=== PATIENT | female | born 1975 | race American Indian/Alaskan Native ===

== ENCOUNTER 2020-07-05 10:32 | Emergency (ER) | payer MEDICAID, OTHER ==
[2020-07-05 10:37] VITALS: BP 130/85
[2020-07-05] MEDS ORDERED: HYDROcodone/ACETAMINOPHEN 5-325 MG TAB PO ONE (11:07)
[2020-07-05] MEDS ORDERED: KETOROLAC 10 MG TAB PO ONE (11:07)
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
== END 2020-07-05 13:03 | disposition home or self-care (01) ==
LOC: ED 10:32
DX: S16.1XXA Strain of muscle, fascia and tendon at neck level, initial encounter (principal); S39.012A Strain of muscle, fascia and tendon of lower back, initial encounter; M19.91 Primary osteoarthritis, unspecified site; Z98.890 Other specified postprocedural states; Z79.899 Other long term (current) drug therapy; V49.49XA Driver injured in collision with other motor vehicles in traffic accident, initial encounter; Y93.89 Activity, other specified; Y92.410 Unspecified street and highway as the place of occurrence of the external cause; Y99.8 Other external cause status
CPT/HCPCS: 72040; 72100

== ENCOUNTER 2020-11-27 22:58 | Observation (INO) | payer OTHER ==
[2020-11-27] MEDS ORDERED: ASPIRIN 325 MG TAB PO ONE (23:04)
[2020-11-27 23:32] LABS: Basophils # (Auto) 0.1 K/mm3 (0.0-0.1); Basophils % (Auto) 0.7 % (0.0-1.8); Eosinophils # (Auto) 0.1 K/mm3 (0.0-0.4); Eosinophils % (Auto) 0.7 % (0.0-4.3); Hematocrit 34.5 % (30.3-42.9); Hemoglobin 11.4 gm/dl (10.1-14.3); Lymphocytes # (Auto) 1.5 K/mm3 (1.2-5.4); Mean Corpuscular HGB Conc 33 % (30-34); Mean Corpuscular Volume 89 fl (79-97); Monocytes # (Auto) 0.8 K/mm3 (0.0-0.8); Monocytes % (Auto) 5.2 % (0.0-7.3); Platelet Count 334 K/mm3 (140-440); Red Blood Count 3.88 M/mm3 (3.65-5.03)
[2020-11-28 00:37] LABS: Alanine Aminotransferase 11 units/L (7-56); Albumin 4.3 g/dL (3.9-5); BUN/Creatinine Ratio 14; Blood Urea Nitrogen 13 mg/dL (7-17); Calcium 8.6 mg/dL (8.4-10.2); Hemolysis Index 16
[2020-11-28 00:59] LABS: Bilirubin,Urine NEG (Negative); Blood,Urine SM (Negative); Color,Urine Yellow (Yellow); Mucus,Urine 2+ /HPF
[2020-11-28] MEDS ORDERED: ONDANSETRON 4 MG/2 ML INJ IV STA (01:28)
[2020-11-28] MEDS ORDERED: MORPHINE 4 MG/1 ML INJ IV STA (01:28)
--- NOTE | 2020-11-28 01:39 | Emergency Department Report ---
ED Abdominal Pain HPI - General Chief Complaint: Chest Pain Stated Complaint: CHEST PAIN/LEFT ARM PAIN/ABDOMINAL PAIN/DIZZY Time Seen by Provider: 11/28/20 01:25 Source: patient Mode of arrival: Ambulatory Limitations: No Limitations - History of Present Illness Initial Comments: 45-year-old -[place] female with no significant past medical history with exception of a previous ventral hernia repair back in the presents emerged department complaining of sudden onset of mid abdominal pain that radiates to the back and lower chest region starting at 2 8:30 PM of unknown allergy. Pain is worse with palpation and range of motion and certain position she reports no vomiting or diarrhea to her knowledge. MD Complaint: abdominal pain Location: diffuse Radiation: none Migration to: no migration Severity: mild Quality: aching, dull Consistency: constant Associated Symptoms: denies other symptoms. denies: vomiting, diarrhea, constipation, dysuria, hematemesis, hematuria, anorexia - Related Data Home Medications Medication Instructions Recorded Confirmed Last Taken Ferrous Sulfate [Iron Supplement] 325 mg PO DAILY 04/08/14 04/08/14 04/07/14 Previous Rx's Medication Instructions Recorded Last Taken Type Diclofenac Sodium 75 mg PO BID PRN 7 Days #14 07/05/20 Unknown Rx tablet. methBONNIE [Robaxin TAB] 1,500 mg PO Q8H PRN #20 tablet 07/05/20 Unknown Rx Allergies Allergy/AdvReac Type Severity Reaction Status Date / Time No Known Allergies Allergy Verified 11/28/20 05:27 ED Review of Systems ROS: Stated complaint: CHEST PAIN/LEFT ARM PAIN/ABDOMINAL PAIN/DIZZY Other details as noted in HPI Comment: All other systems reviewed and negative ED Past Medical Hx - Past Medical History Hx Arthritis: Yes Additional medical history: anemia - Surgical History Additional Surgical History: hernia repair, myoectomy - Social History Smoking Status: Never Smoker Substance Use Type: Alcohol - Medications Home Medications: Home Medications Medication Instructions Recorded Confirmed Last Taken Type Ferrous Sulfate [Iron Supplement] 325 mg PO DAILY 04/08/14 04/08/14 04/07/14 History Diclofenac Sodium 75 mg PO BID PRN 7 Days #14 07/05/20 Unknown Rx tablet.dr Maciel [Robaxin TAB] 1,500 mg PO Q8H PRN #20 tablet 07/05/20 Unknown Rx ED Physical Exam - General Limitations: No Limitations General appearance: alert, in no apparent distress - Head Head exam: Present: atraumatic, normocephalic - Eye Eye exam: Present: normal appearance, PERRL Pupils: Present: normal accommodation - ENT ENT exam: Present: normal exam, normal orophraynx, mucous membranes moist - Neck Neck exam: Present: normal inspection, full ROM - Respiratory Respiratory exam: Present: normal lung sounds bilaterally. Absent: respiratory distress, wheezes, rales, rhonchi - Cardiovascular Cardiovascular Exam: Present: regular rate, normal rhythm. Absent: systolic murmur, diastolic murmur, rubs, gallop - GI/Abdominal GI/Abdominal exam: Present: soft, tenderness, normal bowel sounds, mass (Ventral mass. Possible hernia). Absent: pulsatile mass - Extremities Exam Extremities exam: Present: normal inspection, normal capillary refill - Back Exam Back exam: Present: normal inspection. Absent: CVA tenderness (R), CVA tenderness (L), muscle spasm, paraspinal tenderness - Neurological Exam Neurological exam: Present: alert, oriented X3, CN II-XII intact, normal gait - Psychiatric Psychiatric exam: Present: normal affect, normal mood - Skin Skin exam: Present: warm, dry, intact, normal color. Absent: rash ED Course Vital Signs 11/27/20 23:01 Temperature 98.4 F Pulse Rate 73 Respiratory 18 Rate Blood Pressure 131/72 O2 Sat by Pulse 100 Oximetry - Consultations Consultation #1: 11/28/20 06:22 Case was discussed with general surgeon Dr. Sanchez plan is to keep patient n.p.o. we will perform surgery later this morning advised have the patient admitted to medicine. Dr. Watkins is aware of the evolving urinary tract infection and request antibiotics to be initiated Consultation #2: 11/28/20 06:22 Case was discussed with hospitalist for admission please be made aware of the findings on CT scan as well as urinalysis for definitive treatment. ED Medical Decision Making - Lab Data Result diagrams: 11/27/20 23:14 11/27/20 23:14 Lab Results 11/27/20 11/27/20 11/28/20 Range/Units 23:14 23:14 00:51 WBC 16.3 H (4.5-11.0) K/mm3 RBC 3.88 (3.65-5.03) M/mm3 Hgb 11.4 (10.1-14.3) gm/dl Hct 34.5 (30.3-42.9) % MCV 89 (79-97) fl MCH 29 (28-32) pg MCHC 33 (30-34) % RDW 15.0 (13.2-15.2) % Plt Count 334 (140-440) K/mm3 Lymph % (Auto) 9.0 L (13.4-35.0) % [place] % (Auto) 5.2 (0.0-7.3) % Eos % (Auto) 0.7 (0.0-4.3) % Baso % (Auto) 0.7 (0.0-1.8) % Lymph # (Auto) 1.5 (1.2-5.4) K/mm3 [place] # (Auto) 0.8 (0.0-0.8) K/mm3 Eos # (Auto) 0.1 (0.0-0.4) K/mm3 Baso # (Auto) 0.1 (0.0-0.1) K/mm3 Seg Neutrophils % 84.4 H (40.0-70.0) % Seg Neutrophils # 13.7 H (1.8-7.7) K/mm3 Sodium 138 (137-145) mmol/L Potassium 3.5 L (3.6-5.0) mmol/L Chloride 103.8 (98-107) mmol/L Carbon Dioxide 19 L (22-30) mmol/L Anion Gap 19 mmol/L BUN 13 (7-17) mg/dL Creatinine 0.9 (0.6-1.2) mg/dL Estimated GFR > 60 ml/min BUN/Creatinine Ratio 14 % Glucose 105 H (65-100) mg/dL Calcium 8.6 (8.4-10.2) mg/dL Total Bilirubin 0.20 (0.1-1.2) mg/dL AST 15 (5-40) units/L ALT 11 (7-56) units/L Alkaline Phosphatase 51 (35-129) units/L Troponin T < 0.010 (0.00-0.029) ng/mL Total Protein 7.3 (6.3-8.2) g/dL Albumin 4.3 (3.9-5) g/dL Albumin/Globulin Ratio 1.4 % Urine Color Yellow (Yellow) Urine Turbidity Slightly-cloudy (Clear) Urine pH 6.0 (5.0-7.0) Ur Specific [place] 1.029 (1.003-1.030) Urine Protein 30 mg/dl (Negative) mg/dL Urine Glucose (UA) Neg (Negative) mg/dL Urine Ketones 80 (Negative) mg/dL Urine Blood Sm (Negative) Urine Nitrite Neg (Negative) Urine Bilirubin Neg (Negative) Urine Urobilinogen 2.0 (<2.0) mg/dL Ur Leukocyte Esterase Sm (Negative) Urine WBC (Auto) 35.0 H (0.0-6.0) /HPF Urine RBC (Auto) 11.0 (0.0-6.0) /HPF U Epithel Cells (Auto) 3.0 (0-13.0) /HPF Urine Mucus 2+ /HPF 11/28/20 Range/Units 02:19 WBC (4.5-11.0) K/mm3 RBC (3.65-5.03) M/mm3 Hgb (10.1-14.3) gm/dl Hct (30.3-42.9) % MCV (79-97) fl MCH (28-32) pg MCHC (30-34) % RDW (13.2-15.2) % Plt Count (140-440) K/mm3 Lymph % (Auto) (13.4-35.0) % [place] % (Auto) (0.0-7.3) % Eos % (Auto) (0.0-4.3) % Baso % (Auto) (0.0-1.8) % Lymph # (Auto) (1.2-5.4) K/mm3 [place] # (Auto) (0.0-0.8) K/mm3 Eos # (Auto) (0.0-0.4) K/mm3 Baso # (Auto) (0.0-0.1) K/mm3 Seg Neutrophils % (40.0-70.0) % Seg Neutrophils # (1.8-7.7) K/mm3 Sodium (137-145) mmol/L Potassium (3.6-5.0) mmol/L Chloride (98-107) mmol/L Carbon Dioxide (22-30) mmol/L Anion Gap mmol/L BUN (7-17) mg/dL Creatinine (0.6-1.2) mg/dL Estimated GFR ml/min BUN/Creatinine Ratio % Glucose (65-100) mg/dL Calcium (8.4-10.2) mg/dL Total Bilirubin (0.1-1.2) mg/dL AST (5-40) units/L ALT (7-56) units/L Alkaline Phosphatase (35-129) units/L Troponin T < 0.010 (0.00-0.029) ng/mL Total Protein (6.3-8.2) g/dL Albumin (3.9-5) g/dL Albumin/Globulin Ratio % Urine Color (Yellow) Urine Turbidity (Clear) Urine pH (5.0-7.0) Ur Specific [place] (1.003-1.030) Urine Protein (Negative) mg/dL Urine Glucose (UA) (Negative) mg/dL Urine Ketones (Negative) mg/dL Urine Blood (Negative) Urine Nitrite (Negative) Urine Bilirubin (Negative) Urine Urobilinogen (<2.0) mg/dL Ur Leukocyte Esterase (Negative) Urine WBC (Auto) (0.0-6.0) /HPF Urine RBC (Auto) (0.0-6.0) /HPF U Epithel Cells (Auto) (0-13.0) /HPF Urine Mucus /HPF - Radiology Data Radiology results: report reviewed [address] [place] [address] Cat Scan Report Signed Patient: RONDA PAULA MR#: [id number] : 1975 Acct:[id number] Age/Sex: 45 / F ADM Date: 11/27/20 Loc: ED Attending Dr: Ordering Physician: DARRIAN WOOD Date of Service: 11/28/20 Procedure(s): CT abdomen pelvis w con Accession Number(s): [id number] cc: DARRIAN WOOD CT OF THE ABDOMEN AND PELVIS WITH INTRAVENOUS CONTRAST INDICATION / CLINICAL INFORMATION: Lower abdominal pain. TECHNIQUE: The patient received 100 cc Omnipaque [address] scans at this location are performed using CT dose reduction for ALARA by means of automated exposure control. COMPARISON: None available. FINDINGS: ABDOMEN: There is a small midline epigastric ventral hernia, located a couple of centimeters above the umbilicus. The mouth of the hernia measures 2 cm. The hernia sac measures 2.8 cm. There is a mildly dilated fluid-filled loop of small bowel in the hernia sac. A nondilated loop of small bowel exits the hernia sac. There are several mildly dilated fluid-filled loops of proximal small bowel. The distal small bowel is collapsed. No bowel wall thickening, pneumatosis or free air. There is a small hiatal hernia. The liver, spleen, gallbladder, bile ducts, pancreas, adrenal glands and kidneys demonstrate no significant abnormality. No adenopathy is seen. There is a 1.3 cm rounded cyst in the left lower lobe. There is mild bibasilar dependent atelectasis. PELVIS: There is an enlarged uterus containing multiple fibroids. There is a 2 cm corpus luteal cyst in the right ovary without free fluid. The left ovary is normal. A normal appendix is present and there is no evidence of diverticulitis. No acute osseous abnormality is seen. IMPRESSION: 1. Mild small bowel obstruction secondary to a small epigastric ventral hernia. 2. Enlarged uterus containing multiple fibroids. Small corpus luteal cyst in the right ovary. Signer Name: Ephraim Landin MD Signed: 11/28/2020 3:25 AM Workstation Name: [id number] Transcribed By: RT Dictated By: Ephraim Landin MD Electronically Authenticated By: Ephraim Landin MD Signed Date/Time: 11/28/20324 DD/ 9 TD/TT: Print Cancel Critical care attestation.: If time is entered above; I have spent that time in minutes in the direct care of this critically ill patient, excluding procedure time. ED Disposition Clinical Impression: Ventral hernia, Small bowel obstruction, UTI (urinary tract infection) Disposition: OP ADMIT IP TO THIS HOSP Is pt being admited?: Yes Does the pt Need Aspirin: No Condition: Stable Referrals: PRIMARY CARE, [Primary Care Provider] - 3-5 Days
--- NOTE | 2020-11-28 01:48 | XRay Report ---
CHEST 1 VIEW 11:20 PM INDICATION / CLINICAL INFORMATION: Chest and left arm pain for one hour. COMPARISON: None available. FINDINGS: SUPPORT DEVICES: None. HEART / MEDIASTINUM: The heart size and pulmonary vasculature are normal. The aorta is normal in rickey brittaney. LUNGS / PLEURA: No significant pulmonary or pleural abnormality. No pneumothorax. ADDITIONAL FINDINGS: No significant additional findings. IMPRESSION: No acute findings. Signer Name: Ephraim Landin MD Signed: 11/28/2020 1:44 AM Workstation Name: [id number]
--- NOTE | 2020-11-28 03:30 | Cat Scan Report ---
CT OF THE ABDOMEN AND PELVIS WITH INTRAVENOUS CONTRAST INDICATION / CLINICAL INFORMATION: Lower abdominal pain. TECHNIQUE: The patient received 100 cc Omnipaque [address] scans at this location are performed using CT dose reduction for ALARA by means of automated exposure control. COMPARISON: None available. FINDINGS: ABDOMEN: There is a small midline epigastric ventral hernia, located a couple of centimeters above th e umbilicus. The mouth of the hernia measures 2 cm. The hernia sac measures 2.8 cm. There is a mildly dilated fluid-filled loop of small bowel in the hernia sac. A nondilated loop of small bowel exits t he hernia sac. There are several mildly dilated fluid-filled loops of proximal small bowel. The dista l small bowel is collapsed. No bowel wall thickening, pneumatosis or free air. There is a small hiata l hernia. The liver, spleen, gallbladder, bile ducts, pancreas, adrenal glands and kidneys demonstrate no signi ficant abnormality. No adenopathy is seen. There is a 1.3 cm rounded cyst in the left lower lobe. The re is mild bibasilar dependent atelectasis. PELVIS: There is an enlarged uterus containing multiple fibroids. There is a 2 cm corpus luteal cyst in the right ovary without free fluid. The left ovary is normal. A normal appendix is present and the re is no evidence of diverticulitis. No acute osseous abnormality is seen. IMPRESSION: 1. Mild small bowel obstruction secondary to a small epigastric ventral hernia. 2. Enlarged uterus containing multiple fibroids. Small corpus luteal cyst in the right ovary. Signer Name: Ephraim Landin MD Signed: 11/28/2020 3:25 AM Workstation Name: [email or web address]
--- NOTE | 2020-11-28 06:06 | History and Physical Report ---
History of Present Illness Date of examination: 11/28/20 Date of admission: 11/28/20 Chief complaint: Abdominal pain History of present illness: 45-year-old -[place] female with no significant past medical history with exception of a previous ventral hernia repair back in the presents emerged department complaining of sudden onset of mid abdominal pain that radiates to the back and lower chest region starting at 2 8:30 PM of unknown allergy. Pain is worse with palpation and range of motion and certain position she reports no vomiting or diarrhea to her knowledge. ED work-up WBC 16.3, sodium 138, calcium 8.6, hemoglobin 14.4, potassium 3.5, glucose 105, creatinine 0.9, platelets 334. Checks x-ray no acute findings. CT of the abdomen and pelvis showed- 1. mild small bowel obstruction 2. Enlarged uterus containing fibroid 3. Small luteal cyst in the right ovary. Patient seen in ED at bedside. She reports abdominal pain 10/10. She said that the pain is ongoing for about 2 days not relieved by [id number] medicine. She reports nausea and the pain worsens with palpation of the abdomen. I reviewed lab, medical record, and vital signs. Patient came with mild abdominal pain. General surgeon consulted. Patient is n.p.o. will remain n.p.o. possible surgery today. Past History Past Medical History: other (hernia repair) Past Surgical History: Other (hernia repair) Social history: no significant social history, lives with family Family history: no significant family history Medications and Allergies Allergies Allergy/AdvReac Type Severity Reaction Status Date / Time No Known Allergies Allergy Verified 11/28/20 05:27 Home Medications Medication Instructions Recorded Confirmed Last Taken Type Ferrous Sulfate [Iron Supplement] 325 mg PO DAILY 04/08/14 04/08/14 04/07/14 History Diclofenac Sodium 75 mg PO BID PRN 7 Days #14 07/05/20 Unknown Rx tablet. methOCARBAMOL [Robaxin TAB] 1,500 mg PO Q8H PRN #20 tablet 07/05/20 Unknown Rx Review of Systems Ears, nose, mouth and throat: no epistaxis, no bleeding gums Breasts: no discharge Cardiovascular: no dyspnea on exertion Respiratory: no congestion, no wheezing Gastrointestinal: abdominal pain, nausea, no melena Genitourinary Female: no pelvic pain, no flank pain Musculoskeletal: no neck stiffness Integumentary: no rash, no pruritis Psychiatric: no paranoia, no depression Endocrine: no proptosis Hematologic/Lymphatic: no easy bruising, no easy bleeding Allergic/Immunologic: no urticaria Exam - Constitutional Vitals: Temp Pulse Resp BP Pulse Ox 98.4 F 73 18 131/72 100 11/27/20 23:01 11/27/20 23:01 11/27/20 23:01 11/27/20 23:01 11/27/20 23:01 General appearance: Present: mild distress, well-nourished - EENT Eyes: Present: PERRL ENT: hearing intact, clear oral mucosa - Neck Neck: Present: supple, normal ROM - Respiratory Respiratory effort: normal Respiratory: bilateral: CTA - Cardiovascular Heart rate: 73 Heart Sounds: Present: S1 & S2. Absent: rub, click - Extremities Extremities: pulses symmetrical, No edema Peripheral Pulses: within normal limits - Abdominal General gastrointestinal: Present: soft, non-tender, non-distended, normal bowel sounds Female genitourinary: Present: normal - Integumentary Integumentary: Present: clear, warm, dry - Musculoskeletal Musculoskeletal: gait normal, strength equal bilaterally - Psychiatric Psychiatric: appropriate mood/affect, intact judgment & insight, cooperative - Neurologic Neurologic: CNII-XII intact, moves all extremities - Allied Health Allied health notes reviewed: nursing HEART Score - HEART Score Troponin: Troponin T < 0.010 ng/mL (0.00-0.029) 11/28/20 02:19 Results - Labs CBC & Chem 7: 11/27/20 23:14 11/27/20 23:14 Labs: Abnormal lab results 11/27/20 11/27/20 11/28/20 Range/Units 23:14 23:14 00:51 WBC 16.3 H (4.5-11.0) K/mm3 Lymph % (Auto) 9.0 L (13.4-35.0) % Seg Neutrophils % 84.4 H (40.0-70.0) % Seg Neutrophils # 13.7 H (1.8-7.7) K/mm3 Potassium 3.5 L (3.6-5.0) mmol/L Carbon Dioxide 19 L (22-30) mmol/L Glucose 105 H (65-100) mg/dL Urine WBC (Auto) 35.0 H (0.0-6.0) /HPF Assessment and Plan - Patient Problems (1) Small bowel obstruction Current Visit: Yes Status: Acute Plan to address problem: Patient reports abdominal pain Keep n.p.o. and IV hydration General surgery consult -possible surgery today. (2) Ventral hernia Current Visit: Yes Status: Acute Plan to address problem: History of ventral hernia with repair in the Pain management PRN (3) UTI (urinary tract infection) Current Visit: Yes Status: Acute Plan to address problem: Empiric antibiotic Blood and urine culture follow-up with results (4) Leucocytosis Current Visit: Yes Status: Acute Plan to address problem: Continue empiric antibiotic Blood culture-f/u with result Monitor WBC and lactic acid level (5) DVT prophylaxis Current Visit: Yes Status: Acute Plan to address problem: SCD-patient is possible surgery
[2020-11-28] MEDS ORDERED: SENNOSIDES ORAL LIQD 8.8 MG/5 ML ORAL LIQD PO PRN (06:39)
[2020-11-28] MEDS ORDERED: ONDANSETRON 4 MG/2 ML INJ IV ONE (06:39)
[2020-11-28] MEDS ORDERED: traZODone 50 MG TAB PO PRN (06:39)
[2020-11-28] MEDS ORDERED: traMADol 50 MG TAB PO PRN (06:39)
[2020-11-28] MEDS ORDERED: ONDANSETRON 4 MG/2 ML INJ IV PRN ×2 (06:39→09:00)
[2020-11-28] MEDS ORDERED: ALUM-MAG HYDROXIDE-SIMETHICONE 200-200-20MG/5ML ORAL LIQD 30 ML PO PRN (06:39)
[2020-11-28] MEDS ORDERED: PIPERACIL/TAZOBACTA 4.5/NS 100 4.5 GM/100 ML VIAL IV SCH (07:00)
[2020-11-28] MEDS ORDERED: SUCCINYLCHOLINE CHLORIDE 200 MG/10 ML INJ MDV ONE (07:30)
[2020-11-28] MEDS ORDERED: LIDOCAINE MPF (2%) 20 MG/1 ML VIAL 5 ML ONE (07:30)
[2020-11-28] MEDS ORDERED: ROCURONIUM 50 MG/5 ML INJ IV ONE (07:30)
[2020-11-28] MEDS ORDERED: fentaNYL 100 MCG/2 ML INJ ONE (07:30)
[2020-11-28] MEDS: MORPHINE 2 MG/1 ML INJ IV PRN ×3 (07:30→20:03)
[2020-11-28] MEDS ORDERED: propofoL 200 MG/20 ML VIAL IV ONE (07:31)
[2020-11-28] MEDS: SODIUM CHLORIDE 0.9% 1000 ML 1,000 ML IV SCH ×2 (07:41→16:26)
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
--- NOTE | 2020-11-28 08:06 | Anesthesia Day of Surgery ---
Anesthesia Day of Surgery - Day of Surgery Patient Examined: Yes Patient H&P Reviewed: Yes Patient is NPO: Yes
--- NOTE | 2020-11-28 08:14 | Consultation ---
History of Present Illness Consult date: 11/28/20 Reason for consult: abdominal pain Chief complaint: Abdominal pain - History of present illness History of present illness: 45-year-old female with a past surgical history of umbilical hernia repair in who presents to the emergency room with 1 day of worsening supraumbilical abdominal pain. The patient states she has had abdominal pain on and off for the last 2 to 3 years however it was never this severe and persistent. She states usually she would lay down and with rest the pain would ease up however this time the pain remained constant and severe. Pain is localized to the midline supraumbilical region and is associated with a hard knot in that area. The pain does not radiate. There is no fevers or chills. She was having nausea and vomiting. No flatus. Last bowel movement was yesterday. Past History Past Medical History: other (hernia repair, chronic back pain) Past Surgical History: Other (hernia repair, myomectomy) Social history: no significant social history, lives with family Family history: no significant family history Medications and Allergies Allergies Allergy/AdvReac Type Severity Reaction Status Date / Time Penicillins Allergy Unknown Verified 11/28/20 07:45 Home Medications Medication Instructions Recorded Confirmed Last Taken Type Ferrous Sulfate [Iron Supplement] 325 mg PO DAILY 04/08/14 04/08/14 04/07/14 History Diclofenac Sodium 75 mg PO BID PRN 7 Days #14 07/05/20 Unknown Rx tablet. methOCARBAMOL [Robaxin TAB] 1,500 mg PO Q8H PRN #20 tablet 07/05/20 Unknown Rx Active Meds: Active Medications Al Hydrox/Mg Hydrox/Simethicone (Alum-Mag Hydroxide-Simethicone 892-096-80bn/5ml Oral Liqd 30 Ml) 15 ml PO Q4H PRN PRN Reason: Indigestion Piperacillin Sod/Tazobactam Sod (Zosyn/Ns 4.5gm/100ml) 4.5 gm in 100 mls @ 200 mls/hr IV Q8H CHAPIS; Protocol Last Admin: 11/28/20 07:44 Dose: 200 mls/hr Documented by: Sodium Chloride (Nacl 0.9% 1000 Ml) 1,000 mls @ 100 mls/hr IV DIRECT CHAPIS Last Admin: 11/28/20 07:41 Dose: 100 mls/hr Documented by: Morphine Sulfate (Morphine 2 Mg/1 Ml Inj) 2 mg IV Q4H PRN PRN Reason: Pain, Moderate (4-6) Last Admin: 11/28/20 07:30 Dose: 2 mg Documented by: Ondansetron HCl (Ondansetron 4 Mg/2 Ml Inj) 4 mg IV Q4H PRN PRN Reason: Nausea And Vomiting Senna (Sennosides Oral Liqd 8.8 Mg/5 Ml Oral Liqd) 17.6 mg PO Q12HR PRN PRN Reason: Laxative Effect Tramadol HCl (Tramadol 50 Mg Tab) 50 mg PO Q4H PRN PRN Reason: Pain, Moderate (4-6) Trazodone HCl (Trazodone 50 Mg Tab) 50 mg PO QHS PRN PRN Reason: Insomnia Review of Systems All systems: negative (10 point ROS performed and negative except for that listed in HPI) Exam Vital Signs Temp Pulse Resp BP Pulse Ox 98.4 F 73 18 131/72 100 11/27/20 23:01 11/27/20 23:01 11/27/20 23:01 11/27/20 23:01 11/27/20 23:01 Narrative exam: Gen.: Awake, alert, oriented 3. No apparent distress ENT: Trachea midline. No lymphadenopathy. No scleral icterus or conjunctival pallor CV: S1, S2 present Respiratory: No audible wheezes Abdomen: Soft, mildly distended, tenderness to palpation in the midline just superior to the umbilicus where there is a palpable firm mass. This mass is not reducible. There are no overlying skin changes. There is also mild tenderness to palpation in the left upper and left lower quadrant. No rebound rigidity or guarding. Well-healed transverse umbilical surgical scar. Extremities: No clubbing, cyanosis, edema Results - Labs 11/27/20 23:14 11/27/20 23:14 Abnormal lab results 11/27/20 11/27/20 11/28/20 Range/Units 23:14 23:14 00:51 WBC 16.3 H (4.5-11.0) K/mm3 Lymph % (Auto) 9.0 L (13.4-35.0) % Seg Neutrophils % 84.4 H (40.0-70.0) % Seg Neutrophils # 13.7 H (1.8-7.7) K/mm3 Potassium 3.5 L (3.6-5.0) mmol/L Carbon Dioxide 19 L (22-30) mmol/L Glucose 105 H (65-100) mg/dL Urine WBC (Auto) 35.0 H (0.0-6.0) /HPF Diabetes panel 11/27/20 Range/Units 23:14 Sodium 138 (137-145) mmol/L Potassium 3.5 L (3.6-5.0) mmol/L Chloride 103.8 (98-107) mmol/L Carbon Dioxide 19 L (22-30) mmol/L BUN 13 (7-17) mg/dL Creatinine 0.9 (0.6-1.2) mg/dL Glucose 105 H (65-100) mg/dL Calcium 8.6 (8.4-10.2) mg/dL AST 15 (5-40) units/L ALT 11 (7-56) units/L Alkaline Phosphatase 51 (35-129) units/L Total Protein 7.3 (6.3-8.2) g/dL Albumin 4.3 (3.9-5) g/dL Calcium panel 11/27/20 Range/Units 23:14 Calcium 8.6 (8.4-10.2) mg/dL Albumin 4.3 (3.9-5) g/dL Pituitary panel 11/27/20 Range/Units 23:14 Sodium 138 (137-145) mmol/L Potassium 3.5 L (3.6-5.0) mmol/L Chloride 103.8 (98-107) mmol/L Carbon Dioxide 19 L (22-30) mmol/L BUN 13 (7-17) mg/dL Creatinine 0.9 (0.6-1.2) mg/dL Glucose 105 H (65-100) mg/dL Calcium 8.6 (8.4-10.2) mg/dL Adrenal panel 11/27/20 Range/Units 23:14 Sodium 138 (137-145) mmol/L Potassium 3.5 L (3.6-5.0) mmol/L Chloride 103.8 (98-107) mmol/L Carbon Dioxide 19 L (22-30) mmol/L BUN 13 (7-17) mg/dL Creatinine 0.9 (0.6-1.2) mg/dL Glucose 105 H (65-100) mg/dL Calcium 8.6 (8.4-10.2) mg/dL Total Bilirubin 0.20 (0.1-1.2) mg/dL AST 15 (5-40) units/L ALT 11 (7-56) units/L Alkaline Phosphatase 51 (35-129) units/L Total Protein 7.3 (6.3-8.2) g/dL Albumin 4.3 (3.9-5) g/dL - Imaging CT scan - abdomen: report reviewed, image reviewed CT scan - pelvis: report reviewed, image reviewed Assessment and Plan 45 yo F with incarcerated ventral hernia (recurrent) with small bowel obstr uction Plan: 1. NPO 2. IVF 3. IV abx 4. prn pain and nausea control 5. DVT ppx 6. Recommend urgent Dx lap with possible exlap, possible SBR, hernia repair with possible mesh. Discussed all risks, benefits, alternatives to surgery with patient and questions answered. Consent obtained. Will proceed to OR now. Patient updated her daughter and . Thank you for this consultation. Please call with any questions or concerns. Evaluation and treatment of this patient was during the time of the national and state emergency arising from COVID19 coronavirus pandemic. Treatment and pr ocedures performed meet the current and available best practice and guidelines for patient during the COVID pandemic.
[2020-11-28] MEDS ORDERED: BUPIVACAINE/PF (0.25%) 2.5 MG/ML 30 ML VIAL INFILTRATI ONE ×2 (08:50→09:45)
[2020-11-28] MEDS ORDERED: LIDOCAINE (1%) 10 MG/1 ML VIAL 20 ML MDV ONE (08:50)
[2020-11-28] MEDS ORDERED: ACETAMINOPHEN 325 MG TAB PO PRN (09:00)
[2020-11-28] MEDS ORDERED: SODIUM CHLORIDE 0.9% IRR 1,500 ML BOTTLE IR ONE ×2 (09:24)
[2020-11-28] MEDS ORDERED: HYDROmorphone 1 MG/1 ML INJ ONE (09:24)
[2020-11-28] MEDS ORDERED: dexAMETHasone 20 MG/5 ML VIAL ONE (09:37)
[2020-11-28] MEDS ORDERED: ONDANSETRON 4 MG/2 ML INJ ONE (09:37)
[2020-11-28] MEDS ORDERED: NEOSTIGMINE 10MG/10 ML INJ MDV ONE (09:39)
[2020-11-28] MEDS ORDERED: GLYCOPYRROLATE 0.4 MG/2 ML INJ ONE (09:39)
[2020-11-28] MEDS ORDERED: LIDOCAINE (1%) 10 MG/1 ML VIAL 20 ML MDV IR ONE (09:45)
--- NOTE | 2020-11-28 10:01 | Post Operative Note ---
Pre-op diagnosis: incarcerated ventral hernia with small bowel obstruction Post-op diagnosis: same Findings: 1. Incarcerated supraumbilical midline ventral hernia containing a loop of small bowel - mild SBO 2/2 to hernia 2. Small bowel reduced and viable 3. 1cm facial defect repaired with [address] mesh Procedure: laparoscopic reduction of incarcerated ventral hernia, VHR repair with mesh Anesthesia: GETA, local Surgeon: MARISSA GARCIA Early Childhood Education Worker: LUIS MIGUEL LIRA Estimated blood loss: minimal Pathology: none Condition: stable Disposition: PACU
[2020-11-28] MEDS: HYDROmorphone 1 MG/1 ML INJ IV PRN ×2 (10:23→10:33)
--- NOTE | 2020-11-28 13:22 | Post Anesthesia Evaluation ---
- Post Anesthesia Evaluation Patient Participated: Yes Airway Patent: Yes Stable Respiratory Function: Yes Nausea/Vomiting: No Temp > 96.8F: Yes Pain Manageable: Yes Adequeate Hydration: Yes Anesthesia Complications: No
--- NOTE | 2020-11-28 14:14 | Discharge Summary ---
Providers - Providers Date of Admission: 11/28/20 08:30 Attending physician: AWILDA ZAMUDIO MD 11/28/20 06:37 Consult to Physician [CONS] Routine Comment: Consulting Provider: MARISSA GARCIA Physician Instructions: Reason For Exam: SBO Primary care physician: ACOUSTIC ENGINEER Hospitalization Reason for admission: Abdominal pain Condition: Stable Hospital course: 45-year-old -[place] female with no significant past medical history with exception of a previous ventral hernia repair back in the presents emerged department complaining of sudden onset of mid abdominal pain that radiates to the back and lower chest region starting at 2 8:30 PM of unknown allergy. Pain is worse with palpation and range of motion and certain position she reports no vomiting or diarrhea to her knowledge. ED work-up WBC 16.3, sodium 138, calcium 8.6, hemoglobin 14.4, potassium 3.5, glucose 105, creatinine 0.9, platelets 334. Checks x-ray no acute findings. CT of the abdomen and pelvis showed- 1. mild small bowel obstruction 2. Enlarged uterus containing fibroid 3. Small luteal cyst in the right ovary. Patient seen in ED at bedside. She reports abdominal pain 10/10. She said that the pain is ongoing for about 2 days not relieved by [id number] medicine. She reports nausea and the pain worsens with palpation of the abdomen. I reviewed lab, medical record, and vital signs. Patient came with mild abdominal pain. General surgeon consulted. Patient is n.p.o. will remain n.p.o. possible surgery today. Patient was admitted and seen by surgery with recommendation for urgent Dx lap with possible exlap, possible SBR, hernia repair with possible mesh. Discussed all risks, benefits, alternatives to surgery with patient and questions answered. Consent obtained. Will proceed to OR now. Patient updated her daughter and . Thank you for this consultation. Please call with any questions or concerns. Pre-op diagnosis: incarcerated ventral hernia with small bowel obstruction Post-op diagnosis: same Findings: 1. Incarcerated supraumbilical midline ventral hernia containing a loop of small bowel - mild SBO 2/2 to hernia 2. Small bowel reduced and viable 3. 1cm facial defect repaired with [address] mesh Procedure: Procedure was successful. She is now tolerating clear liquid diet and scheduled for discharge Diagnosis Incarcerated ventral hernia with small bowel obstruction Disposition: TO HOME OR SELFCARE Final Discharge Diagnosis (Prints w/discharge instructions): Incarcerated ventral hernia with small bowel obstruction Time spent for discharge: 35 minutes Core Measure Documentation - Palliative Care Palliative Care/ Comfort Measures: Not Applicable - Core Measures Any of the following diagnoses?: none Exam - Physical Exam Narrative exam: VITAL SIGNS: Reviewed. GENERAL: The patient appears normally developed, Vital signs as documented. HEAD: No signs of head trauma. EYES: Pupils are equal. Extraocular motions intact. EARS: Hearing grossly intact. MOUTH: Oropharynx is normal. NECK: No adenopathy, no JVD. CHEST: Chest with clear breath sounds bilaterally. No wheezes, rales, or rhonchi. CARDIAC: Regular rate and rhythm. S1 and S2, without murmurs, gallops, or rubs. VASCULAR: No Edema. Peripheral pulses normal and equal in all extremities. ABDOMEN: Soft, nondistended but mildly tender at the surgical site no rebound but mild guarding noted. Hypoactive bowel sounds MUSCULOSKELETAL: Good range of motion of all major joints. Extremities without clubbing, cyanosis or edema. NEUROLOGIC EXAM: Alert and oriented x 3 No focal sensory or strength deficits. Speech normal. Follows commands. PSYCHIATRIC: Mood normal. SKIN: detail exam as documented in skin assessment - Constitutional Vitals: Temp Pulse Resp BP Pulse Ox 97.5 F L 66 20 131/77 99 11/28/20 11:08 11/28/20 11:08 11/28/20 11:08 11/28/20 11:02 11/28/20 11:08 Plan Activity: advance as tolerated, fall precautions Diet: low fat Wound: per your surgeon's advice Special Instructions: record daily weights, record daily BP diary Follow up with: PRIMARY CARE, [Primary Care Provider] - 3-5 Days MARISSA GARCIA DO [Staff Physician] - 14 Days Prescriptions: Docusate Sodium [Colace] 100 mg PO BID PRN #30 capsule PRN Reason: Constipation HYDROcodone/APAP 5-325 [[place] 5-325 mg TAB] 1 each PO Q6H PRN #14 tablet PRN Reason: Pain, Moderate (4-6)
--- NOTE | 2020-11-28 14:39 | Event Note ---
Date: 11/28/20 Postop check: Patient seen and examined. She complains of mild mid abdominal soreness. She has tolerated clear liquids. No nausea or vomiting. Vital signs are stable. Raji torres DC home from surgery standpoint. Patient given written and verbal discharge instructions and advised to call the office for 2-week follow-up appointment. She is instructed not to lift anything heavy for 6 weeks. Prescription for pain medication to be provided. Discussed with Dr. Alegria.
--- NOTE | 2020-11-28 14:47 | Operative Report ---
Operative Report Operative Report: Date: 11/28/20 Pre-op diagnosis: incarcerated ventral hernia with small bowel obstruction Post-op diagnosis: same Findings: 1. Incarcerated supraumbilical midline ventral hernia containing a loop of small bowel - mild SBO 2/2 to hernia 2. Small bowel reduced and viable 3. 1cm facial defect repaired with [address] mesh Procedure: laparoscopic reduction of incarcerated ventral hernia, VHR repair with mesh Anesthesia: PETE, local Surgeon: MARISSA GARCIA Recessing Machine Operator: LUIS MIGUEL LIRA Estimated blood loss: minimal Pathology: none Condition: stable Disposition: PACU HPI and indication: Patient is a 45-year-old female with a past surgical history of an umbilical hernia repair in 1994 who presented to the ER with 1 day history of severe supraumbilical abdominal pain nausea and vomiting. CT scan was performed which showed a incarcerated supraumbilical ventral hernia containing a loop of small intestine with a partial small bowel obstruction. The hernia was not reducible on exam and was severely tender to palpation. It was recommended that the patient undergo urgent diagnostic laparoscopy, possible exploratory laparotomy possible bowel resection, hernia repair with possible mesh. All risk, benefits, alternatives to surgery were discussed with the patient questions answered. Consent was obtained. Procedure in detail: Patient was identified in the preoperative area, taken back to the operating room and placed on the operating room table in supine position. After anesthesia was induced a Gross catheter was sterilely placed by the circulating nurse. Both arms were tucked and all bony prominences padded appropriately. An OG tube was placed by anesthesia. The abdomen was prepped and draped in usual sterile fashion timeout performed. Local anesthetic was infiltrated into skin at the intended incision site. A may incision was made in the left upper quadrant at Espino's point. A Veress needle was inserted through this incision and the positioning confirmed using the saline drop test. The abdomen was insufflated to 15 mmHg without incident. A 5 mm left upper quadrant incision was made just below the Veress needle through which a 5 mm Optiview trocar was placed. The abdomen was inspected and there was no underlying injury to the abdominal structures. The Veress needle was removed. The hernia was visualized containing a loop of small intestine. The visualized portion of the intestine appeared decompressed and viable. The proximal small bowel did appear moderately distended and fluid-filled. Using gentle external pressure along with gentle retraction of the bowel contained within the hernia with a grasper, the loop of small intestine was able to be reduced. This was examined very carefully throughout the entire procedure and appeared viable, pink. There were no signs of ischemia, perforation, or necrosis. There was also preperitoneal fat contained within the hernia which was reduced and dissected from the anterior abdominal wall and hernia sac using the LigaSure. The falciform ligament was also ligated and dissected using the LigaSure in order to make room on the abdominal wall for placement of an intra-abdominal mesh. A counterincision was made in the skin directly at the site of the hernia and a cutdown approach was performed. Additional preperitoneal fat that could not be reduced laparoscopically was dissected along with a portion of the hernia sac using electrocautery. This was excised. The fascial borders were identified as well as the hernia defect which measured approximately 1 cm. A 12 mm trocar was placed through this incision. At this point it was decided to repair the hernia with a 8 cm Bard ventral [address]et[address] ST composite mesh. The 12 mm trocar was removed and the mesh placed through the incision using a Megan. The tabs were pulled taut in order to expand the mesh against the anterior abdominal wall. The mesh was visualized laparoscopically and seen to lay flat against the anterior abdominal wall. The mesh was tacked in place circumferentially using a protacker. The tabs of the mesh were sutured to the fascia using 2-0 Prolene interrupted stitches. The tabs were cut flush to the fascia and the fascia approximated using interrupted 0 Vicryl suture. The mesh was seen to lay flat against the anterior abdominal wall. The abdomen was slowly desufflated and the ports removed. The skin was checked for hemostasis which was ensured. The midline 12 mm port incision was closed in layered fashion. The deep dermal layer was approximated using 3-0 Vicryl stitches. All skin incisions were closed with 4-0 Monocryl subcuticular stitches and skin glue. At the end of the case all sponge, instrument, sharp counts were correct x2. The patient was awoken from anesthesia and extubated. An abdominal binder was applied. The Gross catheter was removed. The patient was taken to PACU in stable condition.
[2020-11-28] MEDS: IBUPROFEN 800 MG TAB PO SCH ×2 (17:21→20:04)
[2020-11-29] MEDS: HYDROcodone/ACETAMINOPHEN 5-325 MG TAB PO PRN ×2 (02:08→13:56)
[2020-11-29] MEDS: SODIUM CHLORIDE 0.9% 1000 ML 1,000 ML IV SCH (02:14)
[2020-11-29] MEDS: IBUPROFEN 800 MG TAB PO SCH (02:16)
[2020-11-29] MEDS: MORPHINE 2 MG/1 ML INJ IV PRN ×2 (03:44→07:14)
[2020-11-29 07:02] LABS: HCG Qualitative,Urine Negative (Negative)
[2020-11-29 07:22] LABS: Basophils # (Auto) 0.1 K/mm3 (0.0-0.1); Basophils % (Auto) 0.5 % (0.0-1.8); Hematocrit 32.1 % (30.3-42.9); Hemoglobin 10.4 gm/dl (10.1-14.3); Lymphocytes # (Auto) 1.6 K/mm3 (1.2-5.4); Lymphocytes % (Auto) 12.3 % (13.4-35.0); Mean Corpuscular HGB Conc 32 % (30-34); Mean Corpuscular Volume 89 fl (79-97); Monocytes # (Auto) 0.9 K/mm3 (0.0-0.8); Platelet Count 322 K/mm3 (140-440); Red Blood Count 3.61 M/mm3 (3.65-5.03)
[2020-11-29 07:45] VITALS: BP 124/77
[2020-11-29 08:35] LABS: BUN/Creatinine Ratio 10; Blood Urea Nitrogen 9 mg/dL (7-17); Calcium 7.9 mg/dL (8.4-10.2); Hemolysis Index 0
--- NOTE | 2020-11-29 09:46 | Progress Note ---
Assessment and Plan Assessment and plan: 45-year-old -[place] female with no significant past medical history with exception of a previous ventral hernia repair back in the presents emerged department complaining of sudden onset of mid abdominal pain that radiates to the back and lower chest region starting at 2 8:30 PM of unknown allergy. Pain is worse with palpation and range of motion and certain position she reports no vomiting or diarrhea to her knowledge. ED work-up WBC 16.3, sodium 138, calcium 8.6, hemoglobin 14.4, potassium 3.5, glucose 105, creatinine 0.9, platelets 334. Checks x-ray no acute findings. CT of the abdomen and pelvis showed- 1. mild small bowel obstruction 2. Enlarged uterus containing fibroid 3. Small luteal cyst in the right ovary. Patient seen in ED at bedside. She reports abdominal pain 10/10. She said that the pain is ongoing for about 2 days not relieved by [id number] medicine. She reports nausea and the pain worsens with palpation of the abdomen. I reviewed lab, medical record, and vital signs. Patient came with mild abdominal pain. General surgeon consulted. Patient is n.p.o. will remain n.p.o. possible surgery today. Patient was admitted and seen by surgery with recommendation for urgent Dx lap with possible exlap, possible SBR, hernia repair with possible mesh. Discussed all risks, benefits, alternatives to surgery with patient and questions answered. Consent obtained. Will proceed to OR now. Patient updated her daughter and . Thank you for this consultation. Please call with any questions or concerns. Pre-op diagnosis: incarcerated ventral hernia with small bowel obstruction Post-op diagnosis: same Findings: 1. Incarcerated supraumbilical midline ventral hernia containing a loop of small bowel - mild SBO 2/2 to hernia 2. Small bowel reduced and viable 3. 1cm facial defect repaired with [address] mesh Procedure: Procedure was successful. She is now tolerating clear liquid diet and scheduled for discharge 11/29: Discharge was held yesterday due to nausea vomiting she is clinically improved and can be discharged today. Incarcerated hernia with small bowel obstruction Ventral hernia UTI (urinary tract infection) Leukocytosis History Interval history: Patient seen and examined resting comfortably no further nausea vomiting noted. Hospitalist Physical - Physical exam Narrative exam: VITAL SIGNS: Reviewed. GENERAL: The patient appears normally developed, Vital signs as documented. HEAD: No signs of head trauma. EYES: Pupils are equal. Extraocular motions intact. EARS: Hearing grossly intact. MOUTH: Oropharynx is normal. NECK: No adenopathy, no JVD. CHEST: Chest with clear breath sounds bilaterally. No wheezes, rales, or rhonchi. CARDIAC: Regular rate and rhythm. S1 and S2, without murmurs, gallops, or rubs. VASCULAR: No Edema. Peripheral pulses normal and equal in all extremities. ABDOMEN: Soft, nondistended but mildly tender at the surgical site no rebound but mild guarding noted. Hypoactive bowel sounds MUSCULOSKELETAL: Good range of motion of all major joints. Extremities without clubbing, cyanosis or edema. NEUROLOGIC EXAM: Alert and oriented x 3 No focal sensory or strength deficits. Speech normal. Follows commands. PSYCHIATRIC: Mood normal. SKIN: detail exam as documented in skin assessment - Constitutional Vitals: Temp Pulse Resp BP Pulse Ox 98.1 F 66 18 124/77 98 11/29/20 07:07 11/29/20 07:07 11/29/20 07:07 11/29/20 07:07 11/29/20 07:07 General appearance: Present: mild distress, well-nourished HEART Score - HEART Score Troponin: Troponin T < 0.010 ng/mL (0.00-0.029) 11/28/20 02:19 Results - Labs CBC & Chem 7: 11/29/20 06:53 11/29/20 06:53 Labs: Laboratory Last Values WBC 12.7 K/mm3 (4.5-11.0) H 11/29/20 06:53 RBC 3.61 M/mm3 (3.65-5.03) L 11/29/20 06:53 Hgb 10.4 gm/dl (10.1-14.3) 11/29/20 06:53 Hct 32.1 % (30.3-42.9) 11/29/20 06:53 MCV 89 fl (79-97) 11/29/20 06:53 MCH 29 pg (28-32) 11/29/20 06:53 MCHC 32 % (30-34) 11/29/20 06:53 RDW 15.0 % (13.2-15.2) 11/29/20 06:53 Plt Count 322 K/mm3 (140-440) 11/29/20 06:53 Lymph % (Auto) 12.3 % (13.4-35.0) L 11/29/20 06:53 [place] % (Auto) 7.0 % (0.0-7.3) 11/29/20 06:53 Eos % (Auto) 0.0 % (0.0-4.3) 11/29/20 06:53 Baso % (Auto) 0.5 % (0.0-1.8) 11/29/20 06:53 Lymph # (Auto) 1.6 K/mm3 (1.2-5.4) 11/29/20 06:53 [place] # (Auto) 0.9 K/mm3 (0.0-0.8) H 11/29/20 06:53 Eos # (Auto) 0.0 K/mm3 (0.0-0.4) 11/29/20 06:53 Baso # (Auto) 0.1 K/mm3 (0.0-0.1) 11/29/20 06:53 Seg Neutrophils % 80.2 % (40.0-70.0) H 11/29/20 06:53 Seg Neutrophils # 10.2 K/mm3 (1.8-7.7) H 11/29/20 06:53 Sodium 139 mmol/L (137-145) 11/29/20 06:53 Potassium 3.9 mmol/L (3.6-5.0) 11/29/20 06:53 Chloride 109.3 mmol/L (98-107) H 11/29/20 06:53 Carbon Dioxide 20 mmol/L (22-30) L 11/29/20 06:53 Anion Gap 14 mmol/L 11/29/20 06:53 BUN 9 mg/dL (7-17) 11/29/20 06:53 Creatinine 0.9 mg/dL (0.6-1.2) 11/29/20 06:53 Estimated GFR > 60 ml/min 11/29/20 06:53 BUN/Creatinine Ratio 10 % 11/29/20 06:53 Glucose 93 mg/dL (65-100) 11/29/20 06:53 Lactic Acid 1.00 mmol/L (0.7-2.0) 11/28/20 07:04 Calcium 7.9 mg/dL (8.4-10.2) L 11/29/20 06:53 Total Bilirubin 0.20 mg/dL (0.1-1.2) 11/27/20 23:14 AST 15 units/L (5-40) 11/27/20 23:14 ALT 11 units/L (7-56) 11/27/20 23:14 Alkaline Phosphatase 51 units/L (35-129) 11/27/20 23:14 Troponin T < 0.010 ng/mL (0.00-0.029) 11/28/20 02:19 Total Protein 7.3 g/dL (6.3-8.2) 11/27/20 23:14 Albumin 4.3 g/dL (3.9-5) 11/27/20 23:14 Albumin/Globulin Ratio 1.4 % 11/27/20 23:14 Urine Color Yellow (Yellow) 11/28/20 00:51 Urine Turbidity Slightly-cloudy (Clear) 11/28/20 00:51 Urine pH 6.0 (5.0-7.0) 11/28/20 00:51 Ur Specific [place] 1.029 (1.003-1.030) 11/28/20 00:51 Urine Protein 30 mg/dl mg/dL (Negative) 11/28/20 00:51 Urine Glucose (UA) Neg mg/dL (Negative) 11/28/20 00:51 Urine Ketones 80 mg/dL (Negative) 11/28/20 00:51 Urine Blood Sm (Negative) 11/28/20 00:51 Urine Nitrite Neg (Negative) 11/28/20 00:51 Urine Bilirubin Neg (Negative) 11/28/20 00:51 Urine Urobilinogen 2.0 mg/dL (<2.0) 11/28/20 00:51 Ur Leukocyte Esterase Sm (Negative) 11/28/20 00:51 Urine WBC (Auto) 35.0 /HPF (0.0-6.0) H 11/28/20 00:51 Urine RBC (Auto) 11.0 /HPF (0.0-6.0) 11/28/20 00:51 U Epithel Cells (Auto) 3.0 /HPF (0-13.0) 11/28/20 00:51 Urine Mucus 2+ /HPF 11/28/20 00:51 Urine HCG, Qual Negative (Negative) 11/29/20 Unknown Microbiology: Microbiology 11/28/20 07:04 Peripheral/Venous Blood Culture - Preliminary Culture in Progress 11/28/20 07:04 Peripheral/Venous Blood Culture - Preliminary Culture in Progress Gross/IV: Voiding Method Toilet Active Medications - Current Medications Current Medications: Generic Name Dose Route Start Last Admin Trade Name Freq PRN Reason Stop Dose Admin Acetaminophen 650 mg 11/28/20 09:00 Acetaminophen 325 Mg Tab PO Q4H PRN Pain MILD(1-3)/Fever >100.5/VICTORIA Hydrocodone Bitart/Acetaminophen 1 each 11/28/20 10:30 11/29/20 02:08 Hydrocodone/Acetaminophen 5-325 Mg Tab PO 1 each Q4H PRN Administration Pain, Moderate (4-6) Al Hydrox/Mg Hydrox/Simethicone 15 ml 11/28/20 06:39 Alum-Mag Hydroxide-Simethicone [phone]/5ml Oral Liqd 30 Ml PO Q4H PRN Indigestion Sodium Chloride 1,000 mls @ 100 mls/hr 11/28/20 06:45 11/29/20 02:14 Nacl 0.9% 1000 Ml IV 100 mls/hr DIRECT CHAPIS Administration Ibuprofen 800 mg 11/28/20 11:00 11/29/20 02:16 Ibuprofen 800 Mg Tab PO 800 mg Q8H CHAPIS Administration Morphine Sulfate 2 mg 11/28/20 06:48 11/29/20 07:14 Morphine 2 Mg/1 Ml Inj IV 2 mg Q4H PRN Administration Pain, Moderate (4-6) Ondansetron HCl 4 mg 11/28/20 06:39 11/28/20 16:25 Ondansetron 4 Mg/2 Ml Inj IV 4 mg Q4H PRN Administration Nausea And Vomiting Senna 17.6 mg 11/28/20 06:39 Sennosides Oral Liqd 8.8 Mg/5 Ml Oral Liqd PO Q12HR PRN Laxative Effect Trazodone HCl 50 mg 11/28/20 06:39 Trazodone 50 Mg Tab PO QHS PRN Insomnia
--- NOTE | 2020-11-29 10:45 | Electrocardiograph Report ---
[facility] Test Date: 2020-11-27 Test Time: 23:10:27 Pat Name: RONDA PAULA Department: Room: B315 Gender: F Patrol Officer: SHEY : 1975 Requested By: FABIOLA BYRD Order Number: [id number] Reading MD: Radha Reid Measurements Intervals [place] Rate: 66 P: 70 MS: 147 QRS: 13 QRSD: 92 T: 9 QT: 412 QTc: 431 Interpretive Statements Sinus rhythm Probable left atrial enlargement No previous ECG available for comparison Electronically Signed On 11-29-2020 10:45:05 EDT by Radha Reid
--- NOTE | 2020-11-29 10:55 | Electrocardiograph Report ---
[facility] Test Date: 2020-11-29 Test Time: 07:55:05 Pat Name: RONDA PAULA Department: Room: 15 1 Gender: F Wastewater Engineer: MOSES : 1975 Requested By: FABIOLA BYRD Order Number: [id number] Reading MD: Radha Reid Measurements Intervals [place] Rate: 85 P: 70 UT: 130 QRS: 52 QRSD: 95 T: 37 QT: 365 QTc: 435 Interpretive Statements Sinus rhythm Compared to ECG 11/27/2020 23:10:27 No significant changes Electronically Signed On 11-29-2020 10:55:40 EDT by Radha Reid
--- NOTE | 2020-11-29 13:33 | Post Anesthesia Evaluation ---
- Post Anesthesia Evaluation Patient Participated: Yes Airway Patent: Yes Stable Respiratory Function: Yes Nausea/Vomiting: No Temp > 96.8F: Yes Pain Manageable: Yes Adequeate Hydration: Yes Anesthesia Complications: No Block Receding Appropriately: Not Applicable Patient on Ventilator: No
== END 2020-11-29 17:43 | disposition home or self-care (01) ==
LOC: ED 22:58 → 3B-SURG 11-28 08:30 → INTOOBSV 11-28 08:30
PROVIDERS: ADMIT Internal Medicine; ATTEND Internal Medicine
DX: K56.609 Unspecified intestinal obstruction, unspecified as to partial versus complete obstruction (principal); K43.9 Ventral hernia without obstruction or gangrene; K43.6 Other and unspecified ventral hernia with obstruction, without gangrene; N39.0 Urinary tract infection, site not specified; D72.829 Elevated white blood cell count, unspecified; M19.90 Unspecified osteoarthritis, unspecified site; N85.2 Hypertrophy of uterus; Z98.890 Other specified postprocedural states; Z79.899 Other long term (current) drug therapy
CPT/HCPCS: 36415; 49653; 71045; 74177; 80048; 80053; 81001; 81025; 82140; 84484; 85025; 87040; 87086; 93005; 96365; 96366; 96375; 96376; 99285; C1781; G0378; J0330; J1100; J1170; J2270; J2405; J2543; J2704; J2710; J3010; J7030; Q9967